=== PATIENT | female | born 1985 | race Hispanic/Latino ===

== ENCOUNTER 2018-01-16 23:51 | Emergency (ER) | payer SELFPAY ==
[~2018-01-16] VITALS: Ht 134.6 cm; Wt 60.6 kg
[~2018-01-16 23:51] MED LIST: ATRIPLA PO
[2018-01-17 00:48] LABS: INFLUENZA A NONE DETECTED (NONE DETECT); INFLUENZA B NONE DETECTED (NONE DETECT)
[2018-01-17 01:08] LABS: URINE BILIRUBIN - DIPSTICK NEGATIVE (NEGATIVE); URINE BLOOD DIPSTICK SMALL (NEGATIVE); URINE COLOR YELLOW; URINE GLUCOSE - DIPSTICK NEGATIVE (NEGATIVE); URINE KETONE NEGATIVE (NEGATIVE); URINE LEUK ESTERASE TRACE (Negative); URINE NITRITE - DIPSTICK NEGATIVE (Negative); URINE PROTEIN - DIPSTICK NEGATIVE (NEG-TRACE); URINE SPECIFIC GRAVITY <=1.005; URINE UROBILINOGEN - DIPSTICK 0.2 E.U./dL (0.2)
[2018-01-17 01:11] LABS: URINE CLARITY TURBID
[2018-01-17 01:17] LABS: URINE BACTERIA FEW hpf; URINE RBC 0-2 RBC/hpf (0-5); URINE SQUAMOUS EPITHELIAL CELL FEW EPI/hpf (0-FEW)
[2018-01-17] MEDS ORDERED: CIPROFLOXACN500 MG PO (02:20)
[2018-01-17] MEDS ORDERED: ZOFRAN4 MG/TAB PO (02:21)
[2018-01-17] MEDS ORDERED: ZOFRAN4 M1 PO (02:21)
[2018-01-17 03:02] VITALS: BP 120/80
== END 2018-01-17 03:06 | disposition home or self-care (01) | DRG 392 ==
LOC: ED 23:51
PROVIDERS: Emergency Medicine
DX: K52.9 Noninfective gastroenteritis and colitis, unspecified (principal)

== ENCOUNTER 2019-08-06 | Emergency (ER) | payer SELFPAY ==
[~2019-08-06] MED LIST changes: +CIPROFLOXACN500 MG PO; +ZOFRAN4 M1 PO; +ZOFRAN4 MG/TAB PO
[2019-08-06] MEDS ORDERED: TAM75CAP PO ×2 (17:01→18:28)
== END 2019-08-06 18:43 | disposition home or self-care (01) | DRG 153 ==
DX: J11.1 Influenza due to unidentified influenza virus with other respiratory manifestations (principal); Z21 Asymptomatic human immunodeficiency virus [HIV] infection status

== ENCOUNTER 2022-03-31 20:49 | Emergency (ER) | payer SELFPAY ==
[2022-03-31] VITALS (11 sets, daily range): BP systolic 114–135; BP diastolic 72–84
[~2022-03-31] VITALS: Ht 134.6 cm; Wt 60.0 kg
[~2022-03-31 20:49] MED LIST changes: +TAM75CAP PO
[2022-03-31 22:44] LABS: HEMATOCRIT 38.3 % (37.0-47.0); IMMATURE GRANULOCYTES 0.2 % (0.0-5.0); MEAN CELL VOLUME 90.5 fL CALC (80.0-100.0); MEAN CORPUSCULAR HGB 30.7 pG CALC (26.0-32.0); MEAN CORPUSCULAR HGB CONC 33.9 g/dL CAL (32.0-36.0); NEUT# 7.4 thou/uL (2.00-7.15); RED BLOOD COUNT 4.23 mill/uL (4.20-5.60); RED CELL DISTRI WIDTH 12.8 % (11.5-15.5)
[2022-03-31 22:45] LABS: URINE BILIRUBIN - DIPSTICK NEGATIVE (NEGATIVE); URINE BLOOD DIPSTICK NEGATIVE (NEGATIVE); URINE COLOR YELLOW; URINE GLUCOSE - DIPSTICK NEGATIVE (NEGATIVE); URINE KETONE NEGATIVE (NEGATIVE); URINE LEUK ESTERASE NEGATIVE (NEGATIVE); URINE PROTEIN - DIPSTICK NEGATIVE (NEG-TRACE); URINE UROBILINOGEN - DIPSTICK 0.2 E.U./dL (0.2)
[2022-03-31 22:49] LABS: URINE NITRITE - DIPSTICK NEGATIVE (Negative)
[2022-03-31 23:15] LABS: ALBUMIN 4.1 g/dL (3.2-5.0); ALKALINE PHOSPHATASE 86 u/l (38-126); ANION GAP 13 (6-22 (CALC)); BUN 15 mg/dL (7-17); BUN/CREATININE RATIO 20 (12-20 (CALC)); CARBON DIOXIDE 23 mmol/l (22-30); CHLORIDE 107 mmol/l (95-108); CREATININE 0.7 mg/dL (0.5-1.0); GFR FOR AFR.AMER. > 60 ML/MIN (>=60 (CALC)); GFR OTHER RACES > 60 ML/MIN (>=60 (CALC)); POTASSIUM 3.5 mmol/l (3.5-5.1); SGOT/AST 20 u/l (14-36); SODIUM 140 mmol/l (137-146)
[2022-04-01] MEDS ORDERED: FIORICET PO (00:26)
[2022-04-01] MEDS ORDERED: ONDANSETRON4 MG PO (00:26)
[2022-04-01 00:40] VITALS: BP 122/76
== END 2022-04-01 00:50 | disposition home or self-care (01) | DRG 103 ==
LOC: ED 20:49
PROVIDERS: Emergency Medicine
DX: G43.909 Migraine, unspecified, not intractable, without status migrainosus (principal); Z21 Asymptomatic human immunodeficiency virus [HIV] infection status; Z20.822 Contact with and (suspected) exposure to COVID-19
CPT/HCPCS: Q9967